=== PATIENT | female | born 1980 | race Caucasian/White ===

== ENCOUNTER 2017-05-04 21:04 | Emergency (ER) | payer OTHER ==
[2017-05-04] MEDS ORDERED: ONDANSETRON 4 MG/2 ML VIAL IVP ONE (21:28)
[2017-05-04] MEDS ORDERED: ONDANSETRON 4 MG/2 ML VIAL ONE (21:28)
[2017-05-04] MEDS ORDERED: NS 1,000 ML IV ONE (21:28)
[2017-05-04] MEDS ORDERED: ONDANSETRON 4MG PREPACK#2 BTL TAKEHOME ONE (21:28)
--- NOTE | 2017-05-04 21:29 | EDPHY ---
H & P Time Seen by Provider: 05/04/17 21:12 HPI/ROS: CHIEF COMPLAINT: Nausea and vomiting HISTORY OF PRESENT ILLNESS: Patient started getting sick 3 days ago with sore throat which is improving today. Yesterday she started with fever and chills and diffuse myalgias. Today she presents with mild headache. Continued nausea including vomiting just prior to arrival. She feels dehydrated. She has not been able to eat or drink much today because of nausea. REVIEW OF SYSTEMS: Eye: no change in vision ENT: No earache. Cardiac: no chest pain or syncope Pulmonary: no cough or SOB Abdomen: No diarrhea. No abdominal pain. Musculoskeletal: no back pain or neck pain Skin: no rash Neuro: Mild headache not thunderclap in onset or worst of life. Constitutional: Fever and chills as above : no urinary symptoms, no vaginal symptoms, denies . A comprehensive 10 point review of systems is otherwise negative aside from elements mentioned in the history of present illness. PAST MEDICAL HISTORY: History of Lyme disease. Anemia. Social history: Patient was recently in and talk it 10 days ago but did not have any known tick exposures and does not have a rash. General Appearance: Alert and conversant, cooperative. Eyes: No scleral icterus. ENT, Mouth: Normal mucous membranes. Pharynx is normal without exudate or trismus. No stridor or drooling. Respiratory: Normal respiratory effort, breath sounds equal, lungs are clear to auscultation. Cardiovascular: Regular rate and rhythm. Gastrointestinal: Abdomen is soft and non tender. Neurological: Alert and oriented x3. Normally conversant. Face symmetric, normal movement and sensation in all extremities. Skin: Warm and dry, no rashes. Musculoskeletal: Normal range of motion of the neck. No joint swelling or restriction of range of motion of joints. No effusions. Psychiatric: Not agitated. Emergency Department course/MDM: Patient presents likely viral syndrome giving her pharyngitis and and nausea without evidence of acute bacterial illness or surgical abdomen today. Zofran 4 mg IV and normal saline 1 L. Much more likely to be viral pharyngitis then Lyme disease without known tick exposure or rash. Smoking Status: Never smoked Constitutional: Initial Vital Signs Temperature (C) 37.0 C 05/04/17 21:09 Heart Rate 78 05/04/17 21:09 Respiratory Rate 18 05/04/17 21:09 Blood Pressure 136/76 H 05/04/17 21:09 O2 Sat (%) 97 05/04/17 21:09 O2 Delivery Mode Room Air Allergies/Adverse Reactions: No Known Allergies Allergy (Verified 08/13/15 17:38) Home Medications: Medication Instructions Recorded IOANA REYES 08/13/15 Medical Decision Making Differential Diagnosis: Differential for nausea and vomiting considered including but not limited to gastritis, UTI, viral syndrome, food related. - Data Points Medications Given: Discontinued Medications Sodium Chloride (Ns) 1,000 mls @ 0 mls/hr IV EDNOW ONE; Wide Open PRN Reason: Protocol Stop: 05/04/17 21:29 Last Admin: 05/04/17 21:35 Dose: 1,000 mls Ondansetron HCl (Zofran) 4 mg IVP EDNOW ONE Stop: 05/04/17 21:29 Last Admin: 05/04/17 21:35 Dose: 4 mg Departure - Departure Disposition: Home, Routine, Self-Care Clinical Impression: Dehydration Pharyngitis Qualifiers: Pharyngitis/tonsillitis etiology: unspecified etiology Qualified Code(s): J02.9 - Acute pharyngitis, unspecified Condition: Good Instructions: Dehydration (ED), Acute Nausea and Vomiting (ED) Referrals: EVONNE CARLOS [Non Staff Provider (MD)] - As per Instructions
[2017-05-04 22:34] VITALS: BP 118/76; PULSE 66; RESP 16; TEMP 97.9; O2SAT 96
== END 2017-05-04 22:42 | disposition home or self-care (01) ==
DX: E86.0 Dehydration (principal); J02.9 Acute pharyngitis, unspecified; E86.9 Volume depletion, unspecified
CPT/HCPCS: 96374; J2405